=== PATIENT | female | born 1960 | race Caucasian/White ===

== ENCOUNTER → 2025-06-23 | Outpatient (CLI) | payer OTHER, MEDICAID ==
[2025-06-23 11:56] LABS: BUN 7 mg/dl (9-23); FREE T4 1.42 ng/dl (0.89-1.76); LDL CHOLESTEROL 46 mg/dL (9-159); SGPT/ALT 19 U/L (5-49)
== END | disposition home or self-care (01) ==
LOC: LAB 10:32
PROVIDERS: ATTEND Internal Medicine Endocrinology, Diabetes & Metabolism
DX: E11.9 Type 2 diabetes mellitus without complications (principal); E03.9 Hypothyroidism, unspecified; E78.2 Mixed hyperlipidemia